=== PATIENT | female | born 1985 | race Caucasian/White ===

== ENCOUNTER 2024-02-16 11:53 | Emergency (ER) | payer MEDICAID, OTHER ==
[~2024-02-16] VITALS: Ht 167.6 cm; Wt 64.0 kg
[2024-02-16 11:56] VITALS: O2SAT 98
[2024-02-16] MEDS: KETOROLAC 30MG/ML VIAL IM ONE (13:14)
[2024-02-16] MEDS: HYDROCODONE/ACETAMINOPHEN 5/325MG TABLET PO ONE (13:14)
[2024-02-16] MEDS: ACETAMINOPHEN 325MG TABLET PO ONE (13:14)
[2024-02-16 16:22] LABS: HEMATOCRIT. 38.5 % (36.0-48.0); MEAN CORPUSCULAR HEMOGLOBIN 29.1 pg (28.0-32.0); MEAN CORPUSCULAR HGB CONC 33.8 g/dL (31.0-37.0); MEAN PLATELET VOLUME 7.8 fl (7.4-10.4); PLATELET 314 x1000/uL (130-400); RED BLOOD CELL COUNT 4.48 mill/uL (4.2-5.4); RED CELL DISTRIBUTION WIDTH 13.4 % (11.6-14.6); WHITE BLOOD COUNT 22.6 x1000/uL (4.5-11.0)
[2024-02-16 16:24] LABS: DIFFERENTIAL COMMENT 1
[2024-02-16 16:33] LABS: CARBON DIOXIDE 21 mEq/L (21-32); CHLORIDE 106 mEq/L (98-107); POTASSIUM 3.9 mEq/L (3.5-5.1); PROTHROMBIN TIME 11.2 sec (9.6-11.0); SODIUM 138 mEq/L (136-145)
[2024-02-16 16:39] LABS: CREATININE 0.6 mg/dL (0.6-1.0); GLUCOSE 115 mg/dL (70-105); UREA NITROGEN BLOOD 9 mg/dL (9-23)
[2024-02-16 18:27] VITALS: BP 127/72; PULSE 109; RESP 16; TEMP 37.66968; O2SAT 98
[2024-02-16 18:45] LABS: PLATELET ESTIMATE NORMAL
== END 2024-02-16 18:37 | disposition short-term general hospital (02) ==
LOC: ER 11:53
DX: S72.92XA Unspecified fracture of left femur, initial encounter for closed fracture (principal); Z98.890 Other specified postprocedural states; W50.2XXA Accidental twist by another person, initial encounter; Y93.89 Activity, other specified; Y92.89 Other specified places as the place of occurrence of the external cause; Y99.8 Other external cause status
CPT/HCPCS: 80048; 85025; 85610; 36415; 73552; 71045; 72170; 73560; 93005; 29505; 96372; 99285; J1885; Z7610